=== PATIENT | male | born 1980 | race Caucasian/White ===

== ENCOUNTER 2023-09-23 11:38 | Emergency (ER) | payer MEDICAID, SELFPAY ==
--- NOTE | ~2023-09-23 | CT_ITS ---
EXAMINATION: CT abdomen pelvis w con DATE: 09/23/2023 14:23 INDICATION: Left groin abscess. TECHNIQUE: Computed tomography (CT) of the abdomen and pelvis was performed with 100 mL Omnipaque 350 intravenous contrast. Automated exposure control and iterative reconstruction technique were employe d. The dose-length product was 1240.89 mGy-cm. COMPARISON: None. FINDINGS: The visualized portions of the lung bases demonstrate mild atelectasis. No pleural effusion . The heart size is normal. No pericardial effusion. The liver, gallbladder, spleen, pancreas, adrena l glands, and kidneys are normal. There are no dilated loops of bowel. The appendix is normal. There is no free intraperitoneal fluid. In the left perineum, there is subcutaneous gas with hyperdense pac basilia material and surrounding fat stranding. There is a mildly enlarged left inguinal lymph node. The re is mild thoracic and lumbar spondylosis. IMPRESSION: 1. Inflammation in left perineum with subcutaneous gas and packing material. No residual drainable ab scess. 2. Mildly enlarged left inguinal lymph node, likely reactive. Reviewed, dictated and finalized at location A. [facility] TECH IMPRESSION: 1. Inflammation in left perineum with subcutaneous gas and packing material. No residual drainable abscess. 2. Mildly enlarged left inguinal lymph node, likely reactive.
[2023-09-23 11:49] VITALS: BP 109/68; PULSE 116; RESP 20; TEMP 37.4; O2SAT 97
[2023-09-23 12:34] VITALS: BP 135/99; PULSE 113; RESP 16; O2SAT 98
[2023-09-23 13:08] LABS: Basophils Absolute Auto 0.1 K/mm3 (0.0-0.1); Basophils Percent Auto 0.3 % (0.2-1.2); Eosinophils Percent Auto 0.1 % (0-4.4); Hematocrit 41.9 % (42.0-52.0); Hemoglobin 14.2 g/dL (14.0-18.0); Immature Granulocyte Absolute 0.07 K/mm3 (0.00-0.031); Immature Granulocyte Percent A 0.4 % (0-0.5); Lymphocytes Absolute Auto 1.77 K/mm3 (0.9-3.2); Lymphocytes Percent Auto 9.3 % (18.3-44.2); Mean Corpuscular HGB Conc 33.9 g/dl (32-36); Mean Corpuscular Hemoglobin 29.3 pg (26-34); Mean Corpuscular Volume 86.6 fl (80-100); Mean Platelet Volume 10.7 fl (7.4-10.4); Monocytes Absolute Auto 1.5 K/mm3 (0.1-0.6); Neutrophils Absolute Auto 15.6 K/mm3 (1.3-6.7); Neutrophils Percent Auto 81.9 % (45.5-73.1); Platelet Count Result 266 k/mm3 (150-375); Red Blood Count 4.84 M/mm3 (4.6-6.20); Red Cell Distribution Width 12.9 % (11.5-14.5)
[2023-09-23 13:10] LABS: Alanine Aminotransferase 32 U/L (6-50); Albumin Level 4.2 g/dL (3.5-5.1); Alkaline Phosphatase 78 U/L (38-126); Anion Gap 10 mmol/L (8-16); Aspartate Amino Transferase 25 U/L (17-59); Blood Urea Nitrogen 17 mg/dL (9-20); Carbon Dioxide 22 mmol/L (22-30); Chloride 102 mmol/L (98-107); Estimated CRCL calculation 99 ml/min; Estimated Glomerular Filt Rate > 60; Glucose 103 mg/dL (65-110); Potassium 3.4 mmol/L (3.4-5.0); Sodium 134 mmol/L (137-145)
[2023-09-23 13:11] LABS: Lactic Acid Reflex 1.4 mmol/L (0.7-2.0)
[2023-09-23 13:20] LABS: INR 1.1; Prothrombin Time 14.5 Seconds (11.1-14.7)
[2023-09-23 13:21] LABS: Partial Thromboplastin Time 34.6 SECONDS (22.3-36.8)
[2023-09-23 13:22] LABS: Appearance Urine Clear (Clear); Bacteria Urine None Seen /hpf; Bilirubin Urine 1+ (Negative); Blood Urine Negative (Negative); Color Urine Dark Yellow (Yellow); Glucose Urine UA Negative (Negative); Ketones Urine Trace mg/dL (Negative); Leukocyte Esterase Ur Trace LEU/UL (Negative); Nitrate Urine Negative (Negative); Non Pathogenic Casts 0-2; Protein Urine Trace mg/dL (Negative); RBC Urine 0-2 /hpf (0-2); Specific Grav Ur 1.023 (1.001-1.035); Squamous Epithelial Cell Urine None seen /hpf (Few); Urobilinogen Urine >=8.0 mg/dL (<2.0); WBC Urine 0-5 /hpf; pH Urine 5.5 (5.0-9.0)
[2023-09-23] MEDS: ONDANSETRON INJ 4 MG/2 ML VIAL IV PUSH (13:25)
[2023-09-23] MEDS: HYDROmorphone HCL INJ (*CRX) 1 MG/ML SYR IV PUSH (13:25)
[2023-09-23] MEDS: SODIUM CHLORIDE 0.9% IV 1,000 ML 999 ML IV CONT (13:26)
[2023-09-23 13:40] LABS: Add Urine Microscopic? YES
--- NOTE | 2023-09-23 13:41 | ED.GENADULT ---
HPI - General Adult General Chief complaint: Skin/Abscess/Foreign Body Stated complaint: abscess buttocks Time Seen by Provider: 09/23/23 12:40 History of Present Illness HPI narrative: 43-year-old male present to the emergency department for evaluation increased pain at an abscess that has developed over the last 3 days. Patient reports the pain felt like an ingrown hair proximate 3 days ago but this continues to worsen. Patient denies any pain with having a bowel movement and denies any rectal pressure. Not diabetic, patient has no prior history of MRSA. Patient is not immunocompromised Related Data Allergies Allergy/AdvReac Type Severity Reaction Status Date / Time No Known Allergies Allergy Verified 09/23/23 11:39 Review of Systems Review of Systems: All systems reviewed & are unremarkable except as noted in HPI and below Exam Narrative: APPEARANCE: Well appearing, no pain, no distress, well-nourished. HEAD: normocephalic, atraumatic. EYES: PERRLA/EOMI, conjunctivae clear. NOSE: Normal no drainage NECK: Supple. No adenopathy, no masses. RESPIRATORY: Airway patent, respirations nonlabored. Clear to auscultation bilaterally, no rales, rhonchi, wheezing. CARDIOVASCULAR: Regular rate and rhythm without murmurs rubs or gallops. ABDOMINAL: Soft, nontender, nondistended, normal bowel sounds MUSCULOSKELETAL: Moves all extremities. Strength/ROM intact, No edema, No calf tenderness. NEURO: Alert. Cranial nerves II through XII intact. Good gait. Good coordination SKIN: Significant swelling and erythema on left lateral perineum. Does not track to rectum Course Course Emergency Course: Patient was discharged to home with close follow-up with surgery scheduled for tomorrow Vital Signs Vital signs: Vital Signs Temperature 99.3 F 09/23/23 11:49 Pulse Rate 116 H 09/23/23 11:49 Respiratory Rate 20 09/23/23 11:49 Blood Pressure 109/68 09/23/23 11:49 Pulse Oximetry 97 09/23/23 11:49 Oxygen Delivery Room Air 09/23/23 11:49 Temperature 99.3 F 09/23/23 11:49 Pulse Rate 113 H 09/23/23 12:34 Respiratory Rate 16 09/23/23 12:34 Blood Pressure 135/99 H 09/23/23 12:34 Pulse Oximetry 98 09/23/23 12:34 Oxygen Delivery Room Air 09/23/23 11:49 Procedures Abscess I/D sanchez-rectal: Side (if applicable): left Local Anesthetic: lidocaine 1% and with epi Amount of anesthesia used (mL): 5 Technique: incised with #11 blade Amount of fluid expressed (mL): 10 Packing used?: iodoform I&D Results: Pus and Blood Abcess I&D Additional Comments: Cruciate incision was made and copious blood and purulent discharge Medical Decision Making MDM Narrative Medical decision making narrative: 43-year-old male present to the emergency department for evaluation of an abscess at his perineum. This was drained and patient had copious amounts purulent discharge. CT scan showed localized inflammation of the perineum with no residual abscess. Case was discussed with surgery and they were comfortable with the patient having close follow-up as outpatient tomorrow and this was scheduled for 815 in the morning. While in the emergency department patient was initially started on vancomycin and was treated with IV antibiotics. After the plan was decided to discharge the patient he was started on Bactrim and provided medications for pain control. Patient family were updated on the results of the workup and they are comfortable with plan for discharge and close follow-up. Patient felt significantly improved at time of discharge. Patient did have a leukocytosis of 19. No significant abnormalities on his CMP UA was negative. Differential Diagnosis Differential Diagnosis: Abscess, neck fracture, cellulitis, perirectal abscess Vital Signs Vital Signs: Vital Signs Temperature 99.3 F 09/23/23 11:49 Pulse Rate 116 H 09/23/23 11:49 Respiratory Rate 20 09/23/23 11:
[2023-09-23] MEDS: VANCOMYCIN 1,500 MG/NS 500 ML 1,500 MG/500 ML BAG 250 MG IVPB (14:14)
[2023-09-23] MEDS: HYDROcodone/acetaminophen (*CRX) 5-325 MG TABLET 1 TAB PO (15:24)
[2023-09-23] MEDS: SULFAMETHOXAZOLE/TRIMETHOPRIM 800/160 MG DS TABLET 1 TAB PO (15:24)
--- NOTE | 2023-10-02 10:19 | PC.NURSE ---
LATE ENTRY This note is being entered to document information to the patient's record. The following information was omitted on [10/02/23], by [Lisa Quintanilla Vancomycin stopped on 09/23 at 1514 NS stopped on 09/23 at 1426].
== END 2023-09-23 15:56 | disposition home or self-care (01) ==
PROVIDERS: Emergency Provider Emergency Medicine
DX: L02.215 Cutaneous abscess of perineum (principal)
CPT/HCPCS: 10061; 36415; 41800; 46040; 74177; 80053; 81001; 83605; 85025; 85610; 85730; 87040; 87070; 87205; 96361; 96365; 96375; 99284; A9270; J1170; J2405; J3370; J7030; Q9967